=== PATIENT | female | born 1975 | race Caucasian/White ===

== ENCOUNTER 2022-09-30 15:03 | Emergency (ER) | payer BC ==
[2022-09-30] MEDS ORDERED: Lidocaine 1% with EPINEPHrine 1:100,000 50 ML MDV INFILT ONE (16:10)
== END 2022-09-30 18:05 | disposition home or self-care (01) ==
LOC: JP.ED 15:03
DX: S01.81XA Laceration without foreign body of other part of head, initial encounter (principal); W01.10XA Fall on same level from slipping, tripping and stumbling with subsequent striking against unspecified object, initial encounter
CPT/HCPCS: 12013; 99282